=== PATIENT | male | born 1990 | race Caucasian/White ===

== ENCOUNTER 2020-02-12 12:12 | Emergency (ER) | payer OTHER ==
[2020-02-12 12:17] VITALS: BP 150/84; PULSE 74; RESP 18; TEMP 98.6
[2020-02-12] MEDS ORDERED: KETOROLAC 60 MG/2 ML VIAL IM STA (12:50)
--- NOTE | 2020-02-12 13:19 | ED ---
Back Pain HPI - General Chief Complaint: Back Pain/Injury Stated Complaint: Kidney stone, back pain Time Seen by Provider: 02/12/20 12:36 Source: patient Limitations: no limitations - History of Present Illness Initial Comments: Patient is a 29-year-old male presenting to emergency Department with complaints of right-sided low back pain x 1 week. Patient states he was out hunting and then heading home when he started feeling the back pain. Patient states if he lays flat the pain is better. Patient denies any falls or trauma to the back. He denies any previous surgeries or injuries. He denies any fever, chills, bowel or bladder incontinence. Denies any numbness and tingling into his extremities. He denies any radiation of the pain. He denies history of kidney stones. He states that when he is standing and moving around his pain is worse. He describes the pain as constant, sharp, cramping. He does admit to previous appendectomy, no other abdominal surgeries. He has no urinary complaints. He states he did go to urgent care a few days ago and was started on a steroid pack which has not improved his symptoms. He has no other complaints at this time. Upon arrival to the ER his vitals are stable. - Related Data Previous Rx's Medication Instructions Recorded Cyclobenzaprine [Flexeril] 10 mg PO BID PRN #10 tab 02/12/20 Allergies Allergy/AdvReac Type Severity Reaction Status Date / Time No Known Allergies Allergy Verified 02/12/20 12:17 Review of Systems ROS Statement: Those systems with pertinent positive or pertinent negative responses have been documented in the HPI. ROS Other: All systems not noted in ROS Statement are negative. Past Medical History Past Medical History: No Reported History History of Any Multi-Drug Resistant Organisms: None Reported Past Surgical History: Appendectomy, Orthopedic Surgery Past Psychological History: No Psychological Hx Reported Smoking Status: Never smoker Past Alcohol Use History: None Reported Past Drug Use History: None Reported General Exam - General Exam Comments Initial Comments: GENERAL: Well-appearing, well-nourished and in no acute distress. HEAD: Atraumatic, normocephalic. EYES: Pupils equal round and reactive to light, extraocular movements intact, sclera anicteric, conjunctiva are normal. ENT: TMs normal, nares patent, oropharynx clear without exudates. Moist mucous membranes. NECK: Normal range of motion, supple without lymphadenopathy or JVD. LUNGS: Breath sounds clear to auscultation bilaterally and equal. No wheezes rales or rhonchi. HEART: Regular rate and rhythm without murmurs, rubs or gallops. ABDOMEN: Soft, nontender, normoactive bowel sounds. No guarding, no rebound. No masses appreciated. : Deferred EXTREMITIES: Normal range of motion, no pitting or edema. No clubbing or cyanosis. No pain with palpation of the lumbar midline. He has tenderness of palpation on the right paraspinals. No radiation into the right side. No radiation into the right glut. NEUROLOGICAL: Normal speech, normal gait. PSYCH: Normal mood, normal affect. SKIN: Warm, Dry, normal turgor, no rashes or lesions noted. Limitations: no limitations Course Vital Signs 02/12/20 12:14 Temperature 98.6 F Pulse Rate 74 Respiratory 18 Rate Blood Pressure 150/84 O2 Sat by Pulse 99 Oximetry Medical Decision Making - Medical Decision Making Patient is a 29-year-old male here for right lower back pain times one week. Patient was given Toradol injection. Urine reveals no signs of infection or blood to indicate a kidney stone. I discussed with patient this is most likely muscle skeletal in nature. He should continue with his already prescribed steroids and pain medicine. Patient will be given muscle relaxer and should also use heat to the area and gentle stretching. He is stable for discharge and in agreement with this plan of care. Patient will follow up with PCP if symptoms persist. - Lab Data Lab Results 02/12/20 Range/Units 13:00 Urine Color Yellow Urine Appearance Cloudy (Clear) Urine pH 8.0 (5.0-8.0) Ur Specific [place] 1.022 (1.001-1.035) Urine Protein Negative (Negative) Urine Glucose (UA) Negative (Negative) Urine Ketones Negative (Negative) Urine Blood Negative (Negative) Urine Nitrite Negative (Negative) Urine Bilirubin Negative (Negative) Urine Urobilinogen <2.0 (<2.0) mg/dL Ur Leukocyte Esterase Small H (Negative) Urine RBC 1 (0-5) /hpf Urine WBC 3 (0-5) /hpf Ur Squamous Epith Cells <1 (0-4) /hpf Amorphous Sediment Rare H (None) /hpf Urine Mucus Rare H (None) /hpf Disposition Clinical Impression: Right low back pain Disposition: HOME SELF-CARE Condition: Stable Instructions (If sedation given, give patient instructions): Acute Low Back Pain (ED) Additional Instructions: Please return to the Emergency Department if symptoms worsen or any other concerns. Continue with already prescribed steroids and anti-inflammatory. Trial of muscle relaxer. If symptoms persist follow up with orthopedics as discussed. Prescriptions: Cyclobenzaprine [Flexeril] 10 mg PO BID PRN #10 tab PRN Reason: Muscle Spasm Is patient prescribed a controlled substance at d/c from ED?: No Referrals: None,Stated [Primary Care Provider] - 1-2 days
--- NOTE | 2020-02-12 13:28 | XR ---
EXAMINATION TYPE: XR KUB , 3 VIEWS DATE OF EXAM ORDERED: 02/12/2020 HISTORY: r flank pain. COMPARISON: None. FINDINGS: Lung bases are clear. Within the abdomen, the abdominal gas pattern is normal. There is no evidence of obstruction or free air. No unusual calcifications are seen. IMPRESSION: NO ACUTE INTRA-ABDOMINAL ABNORMALITY.
[2020-02-12 13:29] LABS: Amorphous Sediment,Urine Rare /hpf; Appearance,Urine Cloudy (Clear); Bilirubin,Urine Negative (Negative); Blood,Urine Negative (Negative); Color,Urine Yellow; Glucose,Urine (UA) Negative (Negative); Ketones,Urine Negative (Negative); Leukocyte Esterase,Urine Small (Negative); Mucus,Urine Rare /hpf; Nitrite,Urine Negative (Negative); Protein,Urine Negative (Negative); RBC,Urine 1 /hpf (0-5); Specific Gravity,Urine 1.022 (1.001-1.035); Squamous Epithelial Cell,Urine <1 /hpf (0-4); Urobilinogen,Urine <2.0 mg/dL (<2.0); WBC,Urine 3 /hpf (0-5)
[2020-02-12] MEDS ORDERED: traMADol 50 MG STARTER PACK 3 TAB BTL PO STA (13:53)
== END 2020-02-12 14:02 | disposition home or self-care (01) ==
LOC: EC 12:12
DX: M54.5 Low back pain (principal); Z90.89 Acquired absence of other organs
CPT/HCPCS: 81001; 74018; 96372; 99284; J1885